=== PATIENT | male | born 1985 | race African-American/Black ===

== ENCOUNTER 2016-11-30 15:11 | Emergency (ER) | payer MEDICAID ==
[~2016-11-30] VITALS: Ht 182.9 cm; Wt 88.5 kg
--- NOTE | 2016-11-30 15:51 | ED Upper Extremity ---
General Chief Complaint: Upper Extremity Stated Complaint: RT HAND/ELBOW PAIN Source: patient Exam Limitations: no limitations History of Present Illness Time seen by provider: 15:50 Initial Comments To ER with pain in the right forearm and the dorsal aspect of the right hand over the third metacarpal after punching a wall 3 days ago. Onset: last week Severity: moderate Pain/Injury Location: right forearm, right hand Method of Injury: direct blow Modifying Factors: Worse With Movement Allergies and Home Medications Allergies Coded Allergies: No Known Drug Allergies (Unverified , 11/30/16) Constitutional: see HPI EENTM: see HPI Respiratory: no symptoms reported Cardiovascular: no symptoms reported Genitourinary: no symptoms reported Musculoskeletal: see HPI Skin: no symptoms reported Psychiatric/Neurological: No Symptoms Reported Past [id number] Hx Patient Social History Alcohol Use: Occasionally Uses Recreational Drug Use: No Smoking Status: Current Everyday Smoker Type Used: Cigarettes 2nd Hand Smoke Exposure: No Recent Foreign Travel: No Contact w/Someone Who Travel: No Recent Hopitalizations: No Seasonal Allergies Seasonal Allergies: No Surgeries Surgeries: Orthopedic Physical Exam Vital Signs Vital Sign - Last 12Hours 11/30/16 15:48 Temp 97.2 Pulse 85 Resp 20 B/P (MAP) 158/86 Pulse Ox 98 O2 Delivery Room Air Capillary Refill : General Appearance: WD/WN, no apparent distress HEENT: PERRL/EOMI, normal ENT inspection Neck: non-tender, full range of motion Respiratory: normal breath sounds, no respiratory distress, no accessory muscle use Gastrointestinal: normal bowel sounds, non tender, soft Shoulder: normal inspection, non-tender Elbow/Forearm: normal inspection, non-tender, no evidence of injury, Right Wrist: Yes normal inspection, Yes non-tender Hand: Right, soft tissue tenderness, swelling Neurologic/Tendon: normal sensation, normal motor functions Neurologic/Psychiatric: alert, normal mood/affect, oriented x 3 Skin: normal color, warm/dry Progress/Results/Core Measures Results/Orders My Orders Orders - NITHIN ARUSCH APRN Forearm, Right, 2 Views (11/30/16 15:49) Hand, Right, 3 Views (11/30/16 15:49) Vital Signs/I&O Vital Sign - Last 12Hours 11/30/16 15:48 Temp 97.2 Pulse 85 Resp 20 B/P (MAP) 158/86 Pulse Ox 98 O2 Delivery Room Air Departure Impression Impression: Primary Impression: Hand contusion Disposition: 01 HOME, SELF-CARE Condition: Stable Departure-Patient Inst. Decision time for Depature: 16:21 Referrals: NO,LOCAL PHYSICIAN (PCP/Family) Primary Care Physician Patient Instructions: Contusion (DC) Add. Discharge Instructions: 1. Wear the splint as needed for pain 2. Tylenol and Motrin for pain 3. Return to ER for any worsening All discharge instructions reviewed with patient and/or family. Voiced understanding. NITHIN RAUSCH [facility] ANALYST Nov 30, 2016 15:51
--- NOTE | 2016-11-30 16:22 | Diagnostic Imaging Report ---
INDICATION: Right forearm pain. AP and lateral views of the right forearm are obtained. No fracture or acute bony abnormality is seen. IMPRESSION: Negative right forearm. Dictated by: Dictated on workstation # [id number]
--- NOTE | 2016-11-30 16:22 | Diagnostic Imaging Report ---
INDICATION: Right hand injury. FINDINGS: Three views of the right hand show no fracture, dislocation, or other acute abnormalities. IMPRESSION: Negative right hand. Dictated by: Dictated on workstation # [id number]
[2016-11-30 16:38] VITALS: BP 158/86
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
--- OUTSIDE RECORDS SUMMARY | 2016-12-04 14:21 | XMS REPORT | Continuity of Care Document ---
Author Author [facility] Organization [facility] Address Unknown Phone Unavailable Care Team Providers Care Shield Operator Name Role Phone No Pcp, Na PCP Unavailable Source Comments Some departments are not documenting in the electronic medical record. If you do not see the information that you expected, contact Release of Information in the Health Information Management department at [phone] for further assistance in locating additional records.[facility] Active Allergies and Adverse Reactions No Known Allergies Current Medications Prescription Sig. Disp. Refills Start End Date Status Date traMADol (ULTRAM) 50 mg Take 1 Tab by mouth every 15 Tab 0 07/28/19 Active tablet 6 hours as needed for 16 Pain for up to 15 doses. diazepam (VALIUM) 5 mg Take 1 Tab by mouth every 15 Tab 0 07/28/19 Active tablet 8 hours as needed for 16 Anxiety for up to 15 doses. Active Problems Not on file Social History Tobacco Use Types Packs/Day Years Used Date Never Assessed Last Filed Vital Signs Vital Sign Reading Time Taken Blood Pressure 116/75 07/28/2015 4:30 AM JUVENILE JUSTICE SPECIALIST Pulse 79 07/28/2015 4:30 AM JUVENILE JUSTICE SPECIALIST Temperature 37 C (98.6 F) 07/27/2015 9:24 PM JUVENILE JUSTICE SPECIALIST Respiratory Rate - - Height 1.829 m (6') 07/27/2015 9:24 PM JUVENILE JUSTICE SPECIALIST Weight 111.131 kg (245 lb) 07/27/2015 9:24 PM JUVENILE JUSTICE SPECIALIST Body Mass Index 33.22 07/27/2015 9:24 PM JUVENILE JUSTICE SPECIALIST Oxygen Saturation 96% 07/28/2015 4:30 AM JUVENILE JUSTICE SPECIALIST Plan of Care Health Maintenance Due Date Last Done Comments Physical (Comprehensive) 1992 Exam Pertussis Vaccine 1996 Tetanus Vaccine 2002 Influenza Vaccine 02/09/2017 Results from Last 3 Months Not on file
== END 2016-11-30 16:38 | disposition home or self-care (01) ==
LOC: EDUNIT# 15:11 → ER 15:14
DX: S60.221A Contusion of right hand, initial encounter (principal); F17.210 Nicotine dependence, cigarettes, uncomplicated; W22.01XA Walked into wall, initial encounter
CPT/HCPCS: 73090; 73130; 99282

== ENCOUNTER 2018-03-10 08:56 | Emergency (ER) | payer MEDICAID ==
[~2018-03-10] VITALS: Ht 185.4 cm; Wt 104.3 kg
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
[2018-03-10 10:18] VITALS: BP 145/70
== END 2018-03-10 10:18 | disposition home or self-care (01) ==
LOC: EDUNIT# 08:56 → ER 08:57
DX: S63.501A Unspecified sprain of right wrist, initial encounter (principal); S66.911A Strain of unspecified muscle, fascia and tendon at wrist and hand level, right hand, initial encounter; F17.210 Nicotine dependence, cigarettes, uncomplicated; W22.09XA Striking against other stationary object, initial encounter
CPT/HCPCS: 73110; 73130

== ENCOUNTER 2018-04-02 00:59 | Emergency (ER) | payer SELFPAY ==
[~2018-04-02] VITALS: Ht 182.9 cm; Wt 92.1 kg
--- OUTSIDE RECORDS SUMMARY | 2018-04-02 01:04 | XMS REPORT | Clinical Summary ---
Author Author [facility] Organization [facility] Address Unknown Phone Unavailable Care Team Providers Care Brood Hatchery Manager Name Role Phone No Pcp, Na PCP Unavailable Source Comments Some departments are not documenting in the electronic medical record. If you do not see the information that you expected, contact Release of Information in the Health Information Management department at [phone] for further assistance in locating additional records.[facility] Allergies No Known Allergies Current Medications Prescription Sig. [...] Types Packs/Day Years Used Date Never Assessed Sex Assigned at Date Recorded Not on file Last Filed Vital Signs Vital Sign Reading Time Taken Blood Pressure 116/75 07/28/2015 4:30 AM CANE FLUME WATCHER Pulse 79 07/28/2015 4:30 AM CANE FLUME WATCHER Temperature 37 C (98.6 F) 07/27/2015 9:24 PM CANE FLUME WATCHER Respiratory Rate - - Oxygen Saturation 96% 07/28/2015 4:30 AM CANE FLUME WATCHER Inhaled Oxygen - - Concentration Weight 111.1 kg (245 lb) 07/27/2015 9:24 PM CANE FLUME WATCHER Height 182.9 cm (6') 07/27/2015 9:24 PM CANE FLUME WATCHER Body Mass Index 33.23 07/27/2015 9:24 PM CANE FLUME WATCHER Plan of Treatment Health Maintenance Due Date Last Done Comments PHYSICAL (COMPREHENSIVE) 1992 EXAM PERTUSSIS VACCINE 1996 HIV SCREENING 2000 TETANUS VACCINE 2002 INFLUENZA VACCINE 01/09/2018 Results Not on filefrom Last 3 Months
--- OUTSIDE RECORDS SUMMARY | 2018-04-02 01:04 | XMS REPORT ---
Author Author SARAH COOL Organization [facility] Address [address] [place] [address] Care Team Providers Care Life Insurance Actuary Name Role Phone SARAH COOL Unavailable PROBLEMS Unknown Problems ALLERGIES No Known Allergies ENCOUNTERS Encounter Location Date Diagnosis [facility] [address] [facility] [id number] [address] Apr, [facility] [address] [facility] [id number] [address] Mar, Sprain of right wrist, subsequent encounter S63.501D [facility] [address] [facility] [id number] [address] Mar, Unspecified sprain of right wrist, initial encounter S63.501A IMMUNIZATIONS No Known Immunizations SOCIAL HISTORY Never Assessed REASON FOR VISIT F/U pain on right wrist and middle knuckle, would like to know if MRI would be indicated celine driver PLAN OF CARE Activity Details Follow Up karthikeyan Saleem Reason: VITAL SIGNS Height 70 in 2018-03-18 Weight 203.9 lbs 2018-03-18 Temperature 98.3 degrees Fahrenheit 2018-03-18 Heart Rate 80 bpm 2018-03-18 Respiratory Rate 20 2018-03-18 BMI 29.25 kg/m2 2018-03-18 Blood pressure systolic 136 mmHg 2018-03-18 Blood pressure diastolic 90 mmHg 2018-03-18 MEDICATIONS Medication Instructions Dosage Frequency Start Date End Date Duration Status Flexeril 10 mg by oral route 3 times a day 1 tablet 8h Active ibuprofen 1 tab 14 days Active Excedrin Extra Strength 250-250-65 MG Orally Once a day 2 tablets 24h 30 day(s) Active RESULTS No Results PROCEDURES No Known procedures INSTRUCTIONS MEDICATIONS ADMINISTERED No Known Medications MEDICAL (GENERAL) HISTORY Type Description Date Surgical History total ACL reconstruction 2002 Surgical History hand surgery 1999 Hospitalization History fractured neck 2010
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
[2018-04-02] MEDS ORDERED: HYDROcodone/APAP 5 MG/325 MG (LORTAB) TAB PO ONE (02:00)
--- NOTE | 2018-04-02 02:19 | ED Upper Extremity ---
General Chief Complaint: Upper Extremity Stated Complaint: HAND PAIN Nursing Triage Note: left hand pain/swelling, punched door jam Nursing Sepsis Screen: No Definite Risk Allergies and Home Medications Allergies Coded Allergies: No Known Drug Allergies (Unverified , 11/30/16) Home Medications Hydrocodone/Acetaminophen 1 Each Tablet, 1 EACH PO Q4-6HR PRN for PAIN-MODERATE Prescribed by: RONN BURKS on 04/02/18 0220 Past Yoobsgi-Ovfxiq-Ogibaq Hx Patient Social History Alcohol Use: Denies Use Number of Drinks Today: AA Alcohol Beverage of Choice: Beer Recreational Drug Use: No Smoking Status: Current Everyday Smoker Type Used: Cigarettes 2nd Hand Smoke Exposure: No Recent Foreign Travel: No Contact w/Someone Who Travel: No Recent Infectious Disease Expo: No Recent Hopitalizations: No Seasonal Allergies Seasonal Allergies: No Past Medical History Surgeries: Yes Orthopedic Respiratory: No Cardiac: No Neurological: No Genitourinary: No Gastrointestinal: No Musculoskeletal: Yes Back Injury, Chronic Back Pain Endocrine: No HEENT: No Cancer: No Psychosocial: No Integumentary: No Blood Disorders: No Physical Exam Vital Signs Vital Signs - First Documented 04/02/18 01:19 Temp 97.8 Pulse 106 Resp 18 B/P (MAP) 142/103 (116) Pulse Ox 99 O2 Delivery Room Air Capillary Refill : Less Than 3 Seconds Height, Weight, BMI Height: 6'0" Weight: 203lbs. oz. 92.713033hp; BMI Method:Stated Progress/Results/Core Measures Results/Orders My Orders Orders - RONN HINOJOSA MD Hand, Left, 3 Views (04/02/18 01:18) Hydrocodone/Apap 5/325 Tablet (Lortab 5 (04/02/18 02:00) Medications Given in ED Current Medications Medications Dose Ordered Sig/Bianca Route Start Time Stop Time Status Last Admin Dose Admin Acetaminophen/ Hydrocodone Bitart 1 tab ONCE ONCE PO 04/02/18 02:00 04/02/18 02:02 DC 04/02/18 02:08 1 TAB Vital Signs/I&O 04/02/18 01:19 Temp 97.8 Pulse 106 Resp 18 B/P (MAP) 142/103 (116) Pulse Ox 99 O2 Delivery Room Air Blood Pressure Mean: 116 Departure Impression Primary Impression: Fracture of fifth metacarpal bone of left hand Qualified Codes: S62.307A - Unspecified fracture of fifth metacarpal bone, left hand, initial encounter for closed fracture Additional Impression: Alcohol intoxication Qualified Codes: F10.920 - Alcohol use, unspecified with intoxication, uncomplicated Disposition: 01 HOME, SELF-CARE Condition: Improved Departure-Patient Inst. Decision time for Depature: 02:17 Referrals: [facility] OLIVER NEWSOME MD NO,LOCAL PHYSICIAN (PCP) Primary Care Physician Patient Instructions: Hand Fracture (DC) Add. Discharge Instructions: Keep your hand in the splint and keep it clean and dry until you've follow-up with an orthopedic provider. You can follow-up with an orthopedic provider at the [facility] or with Dr. Newsome. See the contact information below. Use your pain medication as prescribed. Elevation and icing in 20 minute intervals may be helpful in reducing pain and swelling. All discharge instructions reviewed with patient and/or family. Voiced understanding. Scripts Hydrocodone/Acetaminophen (Hydrocodone-Acetamin 5-325 mg) 1 Each Tablet 1 EACH PO Q4-6HR PRN for PAIN-MODERATE, #10 TAB Prov: RONN HINOJOSA MD 04/02/18 RONN HINOJOSA MD Apr 02, 2018 02:19
[2018-04-02] MEDS ORDERED: HYDR-3812 PO (02:20)
[2018-04-02 02:26] VITALS: BP 136/99
--- NOTE | 2018-04-02 06:45 | Diagnostic Imaging Report ---
INDICATION: Pain. FINDINGS: There is a comminuted fracture of the distal aspect of the fifth metacarpal. There is volar angulation of distal fracture fragment. There is soft tissue swelling. There is no other fracture or dislocation. IMPRESSION: Comminuted and slightly displaced fracture involving the distal aspect of the left fifth metacarpal. Dictated by: Dictated on workstation # [id number]
== END 2018-04-02 02:26 | disposition home or self-care (01) ==
LOC: EDUNIT# 00:59 → ER 01:00
DX: S62.307A Unspecified fracture of fifth metacarpal bone, left hand, initial encounter for closed fracture (principal); F10.120 Alcohol abuse with intoxication, uncomplicated; F17.210 Nicotine dependence, cigarettes, uncomplicated; W22.8XXA Striking against or struck by other objects, initial encounter
CPT/HCPCS: 26605; 29125; 73130

== ENCOUNTER 2018-10-16 13:59 | Emergency (ER) | payer MEDICAID ==
[~2018-10-16] VITALS: Ht 182.9 cm; Wt 93.0 kg
[~2018-10-16 13:59] MED LIST: HYDR-3812 PO
--- OUTSIDE RECORDS SUMMARY | 2018-10-16 14:04 | XMS REPORT | Clinical Summary ---
Author Author [facility] Organization [facility] Address Unknown Phone Unavailable Care Team Providers Care Surface Grinder Tender Name Role Phone No Pcp, Na PCP Unavailable Source Comments Some departments are not documenting in the electronic medical record. If you do not see the information that you expected, contact Release of Information in the Health Information Management department at [phone] for further assistance in locating additional records.[facility] Allergies No Known Allergies Medications End Date Status Medication Sig Dispensed Refills Start Date Active traMADol (ULTRAM) 50 mg Take 1 Tab by 15 Tab 0 tablet mouth every 6 6 hours as needed for Pain for up to 15 doses. Active diazepam (VALIUM) 5 mg Take 1 Tab by 15 Tab 0 tablet mouth every 8 6 hours as needed for Anxiety for up to 15 doses. Active Problems Not on file Social History Date Tobacco Use Types Packs/Day Years Used Never Assessed Sex Assigned at Date Recorded Not on file Industry Job Start Date Occupation Not on file Not on file Not on file Travel End Travel History Travel Start No recent travel history available. Last Filed Vital Signs Time Taken Vital Sign Reading 07/28/2015 4:30 AM ACTIVATED SLUDGE ATTENDANT Blood Pressure 116/75 07/28/2015 4:30 AM ACTIVATED SLUDGE ATTENDANT Pulse 79 07/27/2015 9:24 PM ACTIVATED SLUDGE ATTENDANT Temperature 37 C (98.6 F) - Respiratory Rate - 07/28/2015 4:30 AM ACTIVATED SLUDGE ATTENDANT Oxygen Saturation 96% - Inhaled Oxygen - Concentration 07/27/2015 9:24 PM ACTIVATED SLUDGE ATTENDANT Weight 111.1 kg (245 lb) 07/27/2015 9:24 PM ACTIVATED SLUDGE ATTENDANT Height 182.9 cm (6') 07/27/2015 9:24 PM ACTIVATED SLUDGE ATTENDANT Body Mass Index 33.23 Plan of Treatment Health Maintenance Due Date Last Done Comments PHYSICAL (COMPREHENSIVE) 1992 EXAM HIV SCREENING 2000 DTAP/TDAP VACCINES (1 - 09/19/2003 Tdap) INFLUENZA VACCINE 03/11/2019 Results Not on filefrom Last 3 Months Advance Directives Patient has advance care planning documents on file. For more information, please contact: [facility] [address] [facility] [place] [address]
[2018-10-16] MEDS ORDERED: HYDROcodone/APAP 5 MG/325 MG (LORTAB) TAB PO ONE (14:30)
--- NOTE | 2018-10-16 14:48 | ED Lower Extremity ---
General Chief Complaint: Lower Extremity Stated Complaint: KNEE PAIN Nursing Triage Note: PT STATES ABOUT 10 DAYS AGO HE FLET A POP IN HIS LT KNEE, PAIN HAS NOT GONE AWAY AND GETS WORSE OFF AND ON. HAS ALSO FELT A LUMP ON THE POSTERIOR KNEE THAT HE PUSHED BACK IN. ARRIVED ON CRUTCHES, TOOK PT BY W/C TO [facility]8. Nursing Sepsis Screen: No Definite Risk Source: patient Exam Limitations: no limitations History of Present Illness Date Seen by Provider: October 16, 2018 Time Seen by Provider: 14:45 Initial Comments To ER with posterior left knee pain and swelling. This began about 10 days ago, pain has been intermittent. It began after intercourse with his , he stood up and felt a popping sensation in his knee. Pain improved over the next few days and then recurred. He has some swelling behind the left knee that he states he was able to push on and reduce. No fevers or chills. No anterior knee pain. No sensation of instability to the knee, he does have pain with weightbearing and is unable to fully extend the knee. Onset: other (10 days ago intermittent and progressively worsening) Severity: moderate Pain/Injury Location: left knee Method of Injury: twisted Modifying Factors: Worse With Movement Allergies and Home Medications Allergies Coded Allergies: No Known Drug Allergies (Unverified , 11/30/16) Home Medications Hydrocodone Bit/Acetaminophen 1 Tab Tab, 1 EACH PO Q4-6HR PRN for PAIN-MODERATE Prescribed by: NITHIN RAUSCH on 10/16/18 1522 Hydrocodone/Acetaminophen 1 Each Tablet, 1 EACH PO Q4-6HR PRN for PAIN-MODERATE Prescribed by: RONN BURKS on 04/02/18 0220 Patient Home Medication List Home Medication List Reviewed: Yes Review of Systems Constitutional: see HPI EENTM: see HPI Respiratory: no symptoms reported Cardiovascular: no symptoms reported Genitourinary: no symptoms reported Musculoskeletal: see HPI Skin: no symptoms reported Psychiatric/Neurological: No Symptoms Reported Past Uyfbnyv-Yrvzzi-Mjynjq Hx Patient Social History Alcohol Use: Occasionally Uses Number of Drinks Today: AA Alcohol Beverage of Choice: Beer, [place] Recreational Drug Use: No Smoking Status: Current Everyday Smoker Type Used: Cigarettes 2nd Hand Smoke Exposure: No Recent Foreign Travel: No Contact w/Someone Who Travel: No Recent Infectious Disease Expo: No Recent Hopitalizations: No Seasonal Allergies Seasonal Allergies: No Past Medical History Surgeries: Yes (RT KNEE) Orthopedic Respiratory: No Cardiac: No Neurological: No Genitourinary: No Gastrointestinal: No Musculoskeletal: Yes (cervical spine fracture) Back Injury, Chronic Back Pain Endocrine: No HEENT: No Cancer: No Psychosocial: No Integumentary: No Blood Disorders: No Physical Exam Vital Signs Vital Signs - First Documented 10/16/18 14:29 Temp 98.2 Pulse 105 Resp 20 B/P (MAP) 129/78 (95) Pulse Ox 100 O2 Delivery Room Air Capillary Refill : Less Than 3 Seconds Height, Weight, BMI Height: 6'0" Weight: 205lbs. oz. 92.336543ix; BMI Method:Stated General Appearance: WD/WN, no apparent distress HEENT: PERRL/EOMI, normal ENT inspection Neck: non-tender, full range of motion Respiratory: no respiratory distress, no accessory muscle use Hips: bilateral hip non-tender, bilateral hip normal inspection, bilateral hip normal range of motion Legs: bilateral leg non-tender, bilateral leg normal inspection, bilateral leg normal range of motion Knees: left knee other (there is some nonpulsatile swelling to the popliteal fossa. There is no anterior joint tenderness to palpation, no visualized or palpable anterior effusion. No wounds to the knee. His dorsalis pedis and posterior tibial pulses are +2 in strength bilaterally. He denies any paresthesias or tingling of the foot. Otis's test is negative, posterior drawer test was poorly tolerated due to pain but there was no gross instability. ) Ankles: bilateral ankle non-tender, bilateral ankle normal inspection, bilateral ankle normal range of motion Feet: bilateral foot non-tender, bilateral foot normal inspection, bilateral foot normal range of motion Neurologic/Psychiatric: alert, normal mood/affect, oriented x 3 Skin: normal color, warm/dry Progress/Results/Core Measures Results/Orders My Orders Orders - NITHIN RAUSCH APRN Knee, Left, 3 Views (10/16/18 14:27) Hydrocodone/Apap 5/325 Tablet (Lortab 5 (10/16/18 14:30) Us Venous Lower Ext Lt (10/16/18 14:42) Ct Extremity Lower Left Wo (10/16/18 15:18) Medications Given in ED Current Medications Medications Dose Ordered Sig/Bianca Route Start Time Stop Time Status Last Admin Dose Admin Acetaminophen/ Hydrocodone Bitart 1 tab ONCE ONCE PO 10/16/18 14:30 10/16/18 14:31 DC 10/16/18 14:41 1 TAB Vital Signs/I&O 10/16/18 10/16/18 14:29 14:41 Temp 98.2 98.2 Pulse 105 Resp 20 B/P (MAP) 129/78 (95) Pulse Ox 100 O2 Delivery Room Air Blood Pressure Mean: 95 Departure Communication (Admissions) 1513-MRI is booked today is no available openings. This been ongoing for 10 days. I'll wrapped this with an Sincere wrap, have him continue to use the crutches that he presented to the emergency room with, prescribed pain medication and follow-up with primary care. Impression Primary Impression: Internal derangement of left knee Additional Impression: proximal gastrocnemius muscle tear Disposition: HOME, SELF-CARE Condition: Stable Departure-Patient Inst. Decision time for Depature: 15:13 Referrals: OLIVER BARRIENTOS MD NO,LOCAL PHYSICIAN (PCP) Primary Care Physician Patient Instructions: Internal Derangement of the Knee (DC) Add. Discharge Instructions: 1. You need to follow-up with primary care or orthopedics to schedule an MRI of the knee to evaluate the meniscus ligaments. In the meantime keep this wrapped with an Sincere wrap, ice pack, pain medication as directed. All discharge instructions reviewed with patient and/or family. Voiced understanding. Scripts Hydrocodone Bit/Acetaminophen (Hydrocodone/Acetaminophen 5/325mg Tablet) 1 Tab Tab 1 EACH PO Q4-6HR PRN for PAIN-MODERATE MDD 10 for 3 Days, #14 TAB Prov: NITHIN RAUSCH SENIOR STATISTICIAN 10/16/18 NITHIN RAUSCH SENIOR STATISTICIAN October 16, 2018 14:48
--- NOTE | 2018-10-16 15:07 | Diagnostic Imaging Report ---
EXAMINATION: Left knee at 2:45 PM. INDICATION: Knee pain. TECHNIQUE: Three views of the left knee were obtained. COMPARISON: There are no prior studies available for comparison. FINDINGS: No fracture, dislocation, or acute bony abnormality is evident. The knee joint is well maintained. The soft tissues are unremarkable. IMPRESSION: 1. There is no evidence for an acute bony abnormality. 2. If there is clinical concern regarding internal derangement, then MRI would be recommended for additional study. Dictated by: Dictated on workstation # [id number]
[2018-10-16] MEDS ORDERED: ACHD5005 PO (15:22)
--- NOTE | 2018-10-16 15:34 | Diagnostic Imaging Report ---
PROCEDURE: US left lower extremity venous. TECHNIQUE: Multiple real-time grayscale images were obtained over the left lower extremity in various projections. Additional duplex Doppler and color Doppler images were also obtained. INDICATION: Left knee pain and swelling. FINDINGS: There is no evidence of left lower extremity DVT. Left lower extremity deep venous system shows normal compressibility with normal response to augmentation and Valsalva. No fluid collection or mass is seen. IMPRESSION: No evidence of left lower extremity DVT. Dictated by: Dictated on workstation # [id number]
--- NOTE | 2018-10-16 16:19 | Diagnostic Imaging Report ---
INDICATION: Left knee pain post injury. EXAMINATION: CT of the left knee was obtained with axial slices without contrast and sagittal and coronal reconstructions. FINDINGS: Bony windows show no evidence of acute fracture or dislocation. There is no lytic or blastic lesion. There is no overt joint effusion. There appears to be hematoma within the medial gastrocnemius muscle, measuring about 3.5 cm in greatest diameter. IMPRESSION: No acute fracture or overt joint effusion. There appears to be a hematoma in the medial gastrocnemius muscle, measuring about 3.5 cm in greatest diameter. Dictated by: Dictated on workstation # [id number]
[2018-10-16 17:08] VITALS: BP 125/78
== END 2018-10-16 17:08 | disposition home or self-care (01) ==
LOC: EDUNIT# 13:59 → ER 14:01
DX: S86.812A Strain of other muscle(s) and tendon(s) at lower leg level, left leg, initial encounter (principal); M23.91 Unspecified internal derangement of right knee; F17.210 Nicotine dependence, cigarettes, uncomplicated; X50.1XXA Overexertion from prolonged static or awkward postures, initial encounter
CPT/HCPCS: 73562; 73700

== ENCOUNTER 2019-01-30 18:17 | Emergency (ER) | payer MEDICAID ==
[~2019-01-30] VITALS: Ht 182.9 cm; Wt 92.5 kg
[~2019-01-30 18:17] MED LIST changes: +ACHD5005 PO
--- NOTE | 2019-01-30 18:57 | NUR ---
Report given to YANNI Yang to assume care of pt.
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
[2019-01-30] MEDS ORDERED: TETANUS,DIPTH,PERTUSS P/F (BOOSTRIX) 0.5 ML VIAL IM ONE (19:00)
[2019-01-30] MEDS ORDERED: HYDROcodone/APAP 5 MG/325 MG (LORTAB) TAB PO ONE (19:15)
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
[2019-01-30 20:30] VITALS: BP 108/68
== END 2019-01-30 20:30 | disposition home or self-care (01) ==
LOC: EDUNIT# 18:17 → ER 18:19
DX: S01.81XA Laceration without foreign body of other part of head, initial encounter (principal); R40.2142 Coma scale, eyes open, spontaneous, at arrival to emergency department; R40.2252 Coma scale, best verbal response, oriented, at arrival to emergency department; R40.2362 Coma scale, best motor response, obeys commands, at arrival to emergency department; F17.210 Nicotine dependence, cigarettes, uncomplicated; Z23 Encounter for immunization; Z87.81 Personal history of (healed) traumatic fracture; V49.50XA Passenger injured in collision with unspecified motor vehicles in traffic accident, initial encounter
CPT/HCPCS: 12013; 70450; 72125; 90715

== ENCOUNTER 2019-02-06 11:11 | Emergency (ER) | payer MEDICAID ==
[~2019-02-06] VITALS: Ht 182.9 cm; Wt 93.9 kg
[2019-02-06 11:38] VITALS: BP 144/95
== END 2019-02-06 11:41 | disposition home or self-care (01) ==
LOC: EDUNIT# 11:11 → ER 11:12
DX: S01.81XD Laceration without foreign body of other part of head, subsequent encounter (principal); X58.XXXD Exposure to other specified factors, subsequent encounter